=== PATIENT | female | born 1940 | race Caucasian/White ===

== ENCOUNTER 2020-11-17 11:02 | Observation (INO) | payer MEDICARE, BC ==
[2020-11-17] MEDS ORDERED: SODIUM CHLORIDE 0.9% 500 ML 500 ML IV STA (11:09)
--- NOTE | 2020-11-17 11:13 | ED ---
Weakness HPI - General Stated complaint: R sided weakness Time Seen by Provider: 11/17/20 11:02 Source: patient, EMS, RN notes reviewed Mode of arrival: EMS - History of Present Illness Initial comments: This is a 72-year-old female with a prior history of TIA in the past also hypertension who about one and one half hours prior to arrival started developing generalized mainly some weakness with some right-sided weakness. She does state the weakness has improved since then she was evaluated by EMS and in [place] stroke scale was found to be negative. She denies any fevers chills or sweats at this time but does state that she did have that over last couple days she also had a cough for 3 days which has resolved today. She also when she tries to walk feel somewhat shaky and dizzy. She does admit to not eating drinking quite as much as usual. She denies any other complaints or modifying f actors at this time. MD Complaint: generalized weakness, focal weakness, lack of energy - Related Data Home Medications Medication Instructions Recorded Confirmed Aspirin EC [Ecotrin Low Dose] 81 mg PO HS 11/17/20 11/17/20 Carvedilol [Coreg] 25 mg PO BID 11/17/20 11/17/20 Cetirizine HCl 10 mg PO DAILY 11/17/20 11/17/20 Clopidogrel Bisulfate [Plavix] 75 mg PO DAILY 11/17/20 11/17/20 Diclofenac Sodium [Voltaren Gel] 4 gram TOPICAL DAILY 11/17/20 11/17/20 Isosorbide Mononitrate ER [Imdur] 30 mg PO DAILY 11/17/20 11/17/20 Isosorbide Mononitrate ER [Imdur] 60 mg PO DAILY 11/17/20 11/17/20 Multivit-Min/FA/Lycopen/Lutein 1 tab PO DAILY 11/17/20 11/17/20 [Centrum Silver Tablet] Nitroglycerin Sl Tabs [Nitrostat] 0.4 mg SL Q5M PRN 11/17/20 11/17/20 Omeprazole 40 mg PO DAILY 11/17/20 11/17/20 Pravastatin Sodium [Pravachol] 20 mg PO HS 11/17/20 11/17/20 Sennosides/Docusate Sodium [Senna 2 tab PO HS 11/17/20 11/17/20 Plus 8.6-50 mg Tablet] Vitamin B Complex 1 cap PO DAILY 11/17/20 11/17/20 hydrALAZINE HCL [Apresoline] 75 mg PO BID 11/17/20 11/17/20 Allergies Allergy/AdvReac Type Severity Reaction Status Date / Time No Known Allergies Allergy Verified 11/17/20 13:04 Review of Systems ROS Statement: Those systems with pertinent positive or pertinent negative responses have been documented in the HPI. ROS Other: All systems not noted in ROS Statement are negative. General Exam - General Exam Comments Initial Comments: This is a well-developed asthenic appearing female who is awake alert oriented 3 General appearance: alert, in no apparent distress Head exam: Present: atraumatic, normocephalic, normal inspection Eye exam: Present: normal appearance, PERRL, EOMI. Absent: scleral icterus, conjunctival injection, periorbital swelling ENT exam: Present: mucous membranes dry Neck exam: Present: normal inspection, full ROM, other (No stridor JVD or bruits). Absent: tenderness, meningismus, lymphadenopathy Respiratory exam: Present: normal lung sounds bilaterally. Absent: respiratory distress, wheezes, rales, rhonchi, stridor Cardiovascular Exam: Present: regular rate, normal rhythm, normal heart sounds. Absent: systolic murmur, diastolic murmur, rubs, gallop, clicks GI/Abdominal exam: Present: soft, normal bowel sounds. Absent: distended, tenderness, guarding, rebound, rigid, bruit, pulsatile mass Extremities exam: Present: normal inspection, full ROM, normal capillary refill. Absent: tenderness, pedal edema, joint swelling, calf tenderness Back exam: Present: normal inspection Neurological exam: Present: alert, oriented X3, CN II-XII intact Psychiatric exam: Present: normal affect, normal mood Skin exam: Present: warm, dry, intact, normal color. Absent: rash Course Vital Signs 11/17/20 11/17/20 11:05 12:36 Temperature 98.0 F Pulse Rate 68 66 Respiratory 18 18 Rate Blood Pressure 128/66 131/79 O2 Sat by Pulse 98 98 Oximetry - Reevaluation(s) Reevaluation #1: 11/17/20 13:30 (No further symptoms at this time. EKG Findings - EKG Results: EKG: interpreted by ERMD, WNL, sinus rhythm, normal axis, normal QRS, normal ST/T, no acute changes (Normal sinus rhythm a 65. Interval 162 QRS 84 QT since QTC 444/461) Medical Decision Making - Medical Decision Making I did discuss findings with the patient initially also with Dr. Sands patient be admitted with neurology consultation the presentation consistent with a TIA - Lab Data Result diagrams: 11/17/20 11:41 11/17/20 11:41 Lab Results 11/17/20 11/17/20 11/17/20 Range/Units 11:41 11:41 11:41 WBC 7.1 (3.8-10.6) k/uL RBC 4.38 (3.80-5.40) m/uL Hgb 12.8 (11.4-16.0) gm/dL Hct 38.4 (34.0-46.0) % MCV 87.6 (80.0-100.0) fL MCH 29.2 (25.0-35.0) pg MCHC 33.4 (31.0-37.0) g/dL RDW 13.1 (11.5-15.5) % Plt Count 198 (150-450) k/uL MPV 7.4 Neutrophils % 71 % Lymphocytes % 17 % Monocytes % 9 % Eosinophils % 1 % Basophils % 1 % Neutrophils # 5.1 (1.3-7.7) k/uL Lymphocytes # 1.2 (1.0-4.8) k/uL Monocytes # 0.7 (0-1.0) k/uL Eosinophils # 0.1 (0-0.7) k/uL Basophils # 0.1 (0-0.2) k/uL PT 9.9 (9.0-12.0) sec INR 0.9 (<1.2) APTT 19.5 L (22.0-30.0) sec Sodium 134 L (137-145) mmol/L Potassium 4.2 (3.5-5.1) mmol/L Chloride 100 (98-107) mmol/L Carbon Dioxide 23 (22-30) mmol/L Anion Gap 11 mmol/L BUN 14 (7-17) mg/dL Creatinine 0.51 L (0.52-1.04) mg/dL Est GFR (CKD-EPI)AfAm >90 (>60 ml/min/1.73 sqM) Est GFR (CKD-EPI)NonAf >90 (>60 ml/min/1.73 sqM) Glucose 103 H (74-99) mg/dL Calcium 9.0 (8.4-10.2) mg/dL Total Bilirubin 0.8 (0.2-1.3) mg/dL AST 97 H (14-36) U/L ALT 78 H (4-34) U/L Alkaline Phosphatase 127 H (38-126) U/L Creatine Kinase 73 (30-135) U/L Troponin I (0.000-0.034) ng/mL Total Protein 7.2 (6.3-8.2) g/dL Albumin 4.3 (3.5-5.0) g/dL Urine Color Urine Appearance (Clear) Urine pH (5.0-8.0) Ur Specific [place] (1.001-1.035) Urine Protein (Negative) Urine Glucose (UA) (Negative) Urine Ketones (Negative) Urine Blood (Negative) Urine Nitrite (Negative) Urine Bilirubin (Negative) Urine Urobilinogen (<2.0) mg/dL Ur Leukocyte Esterase (Negative) Urine WBC (0-5) /hpf Ur Squamous Epith Cells (0-4) /hpf Urine Mucus (None) /hpf 11/17/20 11/17/20 Range/Units 11:41 11:42 WBC (3.8-10.6) k/uL RBC (3.80-5.40) m/uL Hgb (11.4-16.0) gm/dL Hct (34.0-46.0) % MCV (80.0-100.0) fL MCH (25.0-35.0) pg MCHC (31.0-37.0) g/dL RDW (11.5-15.5) % Plt Count (150-450) k/uL MPV Neutrophils % % Lymphocytes % % Monocytes % % Eosinophils % % Basophils % % Neutrophils # (1.3-7.7) k/uL Lymphocytes # (1.0-4.8) k/uL Monocytes # (0-1.0) k/uL Eosinophils # (0-0.7) k/uL Basophils # (0-0.2) k/uL PT (9.0-12.0) sec INR (<1.2) APTT (22.0-30.0) sec Sodium (137-145) mmol/L Potassium (3.5-5.1) mmol/L Chloride (98-107) mmol/L Carbon Dioxide (22-30) mmol/L Anion Gap mmol/L BUN (7-17) mg/dL Creatinine (0.52-1.04) mg/dL Est GFR (CKD-EPI)AfAm (>60 ml/min/1.73 sqM) Est GFR (CKD-EPI)NonAf (>60 ml/min/1.73 sqM) Glucose (74-99) mg/dL Calcium (8.4-10.2) mg/dL Total Bilirubin (0.2-1.3) mg/dL AST (14-36) U/L ALT (4-34) U/L Alkaline Phosphatase (38-126) U/L Creatine Kinase (30-135) U/L Troponin I <0.012 (0.000-0.034) ng/mL Total Protein (6.3-8.2) g/dL Albumin (3.5-5.0) g/dL Urine Color Dark Yellow Urine Appearance Clear (Clear) Urine pH 6.5 (5.0-8.0) Ur Specific [place] 1.021 (1.001-1.035) Urine Protein 1+ H (Negative) Urine Glucose (UA) Negative (Negative) Urine Ketones Negative (Negative) Urine Blood Negative (Negative) Urine Nitrite Negative (Negative) Urine Bilirubin Negative (Negative) Urine Urobilinogen <2.0 (<2.0) mg/dL Ur Leukocyte Esterase Trace H (Negative) Urine WBC 2 (0-5) /hpf Ur Squamous Epith Cells <1 (0-4) /hpf Urine Mucus Occasional H (None) /hpf - Radiology Data Radiology results: report reviewed (I did review the imaging and reports no evidence of acute obstructions.), image reviewed Disposition Clinical Impression: TIA (transient ischemic attack), Dehydration Disposition: ADMITTED IP TO THIS HOSP Condition: Fair Referrals: Hussain Metzger DO [Primary Care Provider] - 1-2 days
[2020-11-17 11:53] LABS: Basophils # (A) 0.1 k/uL (0-0.2); Basophils % (A) 1 %; Eosinophils # (A) 0.1 k/uL (0-0.7); Eosinophils % (A) 1 %; HCT 38.4 % (34.0-46.0); HGB 12.8 gm/dL (11.4-16.0); Lymphocytes # (A) 1.2 k/uL (1.0-4.8); Lymphocytes % (A) 17 %; MCH 29.2 pg (25.0-35.0); MCHC 33.4 g/dL (31.0-37.0); MCV 87.6 fL (80.0-100.0); Mean Platelet Volume 7.4; Monocytes # (A) 0.7 k/uL (0-1.0); Monocytes % (A) 9 %; Neutrophils # (A) 5.1 k/uL (1.3-7.7); Neutrophils % (A) 71 %; Platelet Count 198 k/uL (150-450); RBC 4.38 m/uL (3.80-5.40); RDW 13.1 % (11.5-15.5); WBC 7.1 k/uL (3.8-10.6)
[2020-11-17] MEDS: SODIUM CHLORIDE 0.9% 1,000 ML IV STA ×2 (12:04→17:00)
[2020-11-17 12:08] LABS: ALT 78 U/L (4-34); AST 97 U/L (14-36); African American GFR (CKD) >90 (>60 ml/min/1.73 sqM); Albumin 4.3 g/dL (3.5-5.0); Alkaline Phosphatase 127 U/L (38-126); Anion Gap 11 mmol/L; Blood Urea Nitrogen 14 mg/dL (7-17); Carbon Dioxide 23 mmol/L (22-30); Chloride 100 mmol/L (98-107); Creatine Kinase 73 U/L (30-135); Glucose 103 mg/dL (74-99); Non-African American GFR(CKD) >90 (>60 ml/min/1.73 sqM); Potassium 4.2 mmol/L (3.5-5.1); Sodium 134 mmol/L (137-145); Total Bilirubin 0.8 mg/dL (0.2-1.3); Total Protein 7.2 g/dL (6.3-8.2)
[2020-11-17 12:17] LABS: Appearance,Urine Clear (Clear); Bilirubin,Urine Negative (Negative); Blood,Urine Negative (Negative); Color,Urine Dark Yellow; Glucose,Urine (UA) Negative (Negative); Ketones,Urine Negative (Negative); Leukocyte Esterase,Urine Trace (Negative); Mucus,Urine Occasional /hpf; Nitrite,Urine Negative (Negative); PH, Urine 6.5 (5.0-8.0); Protein,Urine 1+ (Negative); Specific Gravity,Urine 1.021 (1.001-1.035); Squamous Epithelial Cell,Urine <1 /hpf (0-4); Urobilinogen,Urine <2.0 mg/dL (<2.0); WBC,Urine 2 /hpf (0-5)
[2020-11-17 12:19] LABS: INR 0.9 (<1.2); Prothrombin Time 9.9 sec (9.0-12.0)
--- NOTE | 2020-11-17 12:19 | XR ---
EXAMINATION TYPE: XR chest 2V DATE OF EXAM: 11/17/2020 COMPARISON: NONE HISTORY: Dizziness and weakness. TECHNIQUE: Frontal and lateral views of the chest are obtained. FINDINGS: There is mild chronic parenchymal change without suspicious focal air space opacity, pleur al effusion, or pneumothorax seen. The cardiac silhouette size is upper limits of normal with athero sclerotic thoracic aorta and coronary stent in the left circumflex distribution. The osseous struct ures are intact. Cholecystectomy clips noted on lateral view. IMPRESSION: Chronic changes without acute pulmonary process.
[2020-11-17 12:25] LABS: Partial Thromboplastin Time 19.5 sec (22.0-30.0)
--- NOTE | 2020-11-17 13:05 | CT ---
EXAMINATION TYPE: CT brain wo con for TPA DATE OF EXAM: 11/17/2020 HISTORY: Neuro deficit, acute, stroke suspected CT DLP: 1022 mGycm. Automated Exposure Control for Dose Reduction was Utilized. TECHNIQUE: CT scan of the head is performed without contrast. COMPARISON: None. FINDINGS: There is no acute intracranial hemorrhage or midline shift identified. There is mild diff use ventricular and sulcal prominence consistent with diffuse age-related cerebral atrophy. There is mild to moderate low-attenuation in the periventricular white matter consistent with chronic small v essel ischemic change. The globes are intact and the visualized sinuses are clear. IMPRESSION: No acute intracranial hemorrhage or midline shift. There is mild diffuse age-related ce rebral atrophy and mild to moderate chronic small vessel ischemic change noted.
--- NOTE | 2020-11-17 13:13 | CT ---
EXAMINATION TYPE: CT angio head neck DATE OF EXAM: 11/17/2020 HISTORY: Neuro deficit, acute, stroke suspected COMPARISON: None. CT DLP: 301.8 mGycm. Automated Exposure Control for Dose Reduction was Utilized. TECHNIQUE: CTA scan of the head and neck are performed with IV Contrast, patient injected with 65 mL of Isovue 370, axial images are obtained, coronal and sagittal reformatted images are reviewed. Thre e-D reconstructed images are created on an independent workstation and reviewed. FINDINGS: Carotid/Vascular Structures: Arch origin vessels not included in field of view. Right common carotid artery shows normal origin from right brachiocephalic artery. Tortuous course to the visualized porti on of the proximal to mid common carotid arteries bilaterally. No significant plaque or stenosis in c ommon carotid arteries bilaterally. Proximal left common carotid artery is not included to assess. Th ere is mild to moderate mixed plaque at bilateral carotid bulbs extending into proximal internal mata tid arteries without significant stenosis identified bilaterally. There is no significant plaque or s tenosis in the external carotid arteries. Patent codominant vertebral arteries to the basilar junction. No significant focal stenosis or aneury sm. Patent right posterior communicating artery. Hypoplastic left posterior communicating artery. No significant focal stenosis or aneurysm. Hypoplastic anterior communicating artery. No significant foc al stenosis is seen. Mild calcified plaque distal internal carotid arteries bilaterally. There is slight ectasia or tiny c ylindrical aneurysm of the right A2 segment measuring 3.5 mm thin slice 135 and slightly more promine nt cylindrical aneurysm left A2 segment measuring 4.4 mm thin slice 138. Other: Moderate to severe disc space narrowing and endplate sclerosis C5-C6 level Heterogeneous multinodular thyroid goiter felt present. Correlate clinically. Consider ultrasound fol low-up based on clinical correlation. Scleral calcification bilateral globes medially. IMPRESSION: 1. Suboptimal study without significant stenosis seen in common or internal carotid arteries bilatera lly. 2. 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 No significant stenosis at level of ramona of [place].
[2020-11-17] MEDS ORDERED: NITROGLYCERIN SL TABS 0.4 MG TAB SUBLINGUAL PRN (13:33)
--- NOTE | 2020-11-17 16:14 | P.CNNES ---
History of Present Illness Consult date: 11/17/20 Requesting physician: Alan Davis Reason for Consult: right sided weakness History of Present Illness: This is a 80-year-old woman with history of hypertension (since 1995), CAD s/p 4 2011, lumbar spondylosis s/p lumbar fusion (02/2020), hypercholestremia that presented to the emergency department on 11/17/2020 for slurring of her speech. According to patient that she stated that for the last 3 days she hasn't been feeling well and she's been having generalized weakness fatigue and that today in the morning was noted by her daughter that the patient was slurring her speech. As well as a the patient stated that the her daughter notified her mother that she wasn't making sense when she was talking. Per the patient the entire episode lasted for 30 minutes. It is reported by the ED team that the patient had right-sided weakness but she denied any right-sided weakness on today's presentation. She said that she does have episodes that she has right-sided weakness in the past but not on this occasion. She denies of any focal weakness, numbness, visual disturbance. She denies of any fever. She said that she had a cough sometime earlier in the week but that resolved. Currently she is back to her baseline. She said that she had a questionable transient ischemic attack about 3 years ago where she felt dizzy and lightheaded when she stood up and was feel generalized weak at that time and then she passed out and it was questionable whether it was a transient ischemic attack or not. She denies any history of seizures or family history of seizures. Patient home medication is Plavix 75 mg daily, aspirin 81 mg, pravastatin 20 mg daily, other blood pressure medications such as hydralazine and the patient is on carvedilol and isosorbide for a heart. Patient is on vitamin B complex and denies missing her antiplatelet or cholesterol medication. Workup in the hospital consisted of: Blood pressure of 128/66, heart rate of 68, respiratory of 18, temperature of 98.0 Fahrenheit and pulse ox of 98% at room air. CT of the head is reported as no acute intracranial hemorrhage or midline shift. There is mild diffuse age-related cerebral atrophy and mild to moderate chronic small vessel ischemic changes noted. CT head and neck was reported as suboptimal study without significant stenosis seen in common or internal carotid arteries bilaterally. 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 No significant stenosis at the level mechoopda of [place]. 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 The intervention neurologist (Dr. Deleon) was contacted regarding the patient aneurysm and he stated nothing to be done at this time and to follow-up as an outpatient. Per ED team Dr. Deleon stated his team will attempt to contact her for outpatient follow-up. EKG is reported as normal sinus rhythm. Normal EKG. AST of 97, ALT of 78. Review of Systems Review of system: The 12 point system was reviewed and apparent positive and negative per HPI. Past Medical History Past Medical History: CVA/TIA, Hyperlipidemia, Hypertension Additional Past Medical History / Comment(s): angina, TIA history History of Any Multi-Drug Resistant Organisms: None Reported Past Surgical History: Section, Cholecystectomy, Ear Surgery, Heart Cat heterization With Stent, Hysterectomy, Joint Replacement Additional Past Surgical History / Comment(s): low back fusion, lithotripsy, 4 cardiac stents, right partial knee, Past Psychological History: Depression Smoking Status: Former smoker Past Alcohol Use History: None Reported Past Drug Use History: None Reported - Past Family History Father Family Medical History: Hyperlipidemia, Hypertension, Myocardial Infarction (SC), Osteoarthritis (OA) Additional Family Medical History / Comment(s): Father had heart problems and of a SC at the age of 82 yrs. Mother Family Medical History: Diabetes Mellitus, Myocardial Infarction (SC) Additional Family Medical History / Comment(s): Mother of a SC at the age of 78yrs. Medications and Allergies Home Medications Medication Instructions Recorded Confirmed Type Aspirin EC [Ecotrin Low Dose] 81 mg PO HS 11/17/20 11/17/20 History Carvedilol [Coreg] 25 mg PO BID 11/17/20 11/17/20 History Cetirizine HCl 10 mg PO DAILY 11/17/20 11/17/20 History Clopidogrel Bisulfate [Plavix] 75 mg PO DAILY 11/17/20 11/17/20 History Diclofenac Sodium [Voltaren Gel] 4 gram TOPICAL DAILY 11/17/20 11/17/20 History Isosorbide Mononitrate ER [Imdur] 30 mg PO DAILY 11/17/20 11/17/20 History Isosorbide Mononitrate ER [Imdur] 60 mg PO DAILY 11/17/20 11/17/20 History Multivit-Min/FA/Lycopen/Lutein 1 tab PO DAILY 11/17/20 11/17/20 History [Centrum Silver Tablet] Nitroglycerin Sl Tabs [Nitrostat] 0.4 mg SL Q5M PRN 11/17/20 11/17/20 History Omeprazole 40 mg PO DAILY 11/17/20 11/17/20 History Pravastatin Sodium [Pravachol] 20 mg PO HS 11/17/20 11/17/20 History Sennosides/Docusate Sodium [Senna 2 tab PO HS 11/17/20 11/17/20 History Plus 8.6-50 mg Tablet] Vitamin B Complex 1 cap PO DAILY 11/17/20 11/17/20 History hydrALAZINE HCL [Apresoline] 75 mg PO BID 11/17/20 11/17/20 History Allergies Allergy/AdvReac Type Severity Reaction Status Date / Time No Known Allergies Allergy Verified 11/17/20 13:04 Physical Examination - Vital Signs Vital Signs: Vital Signs Temp Pulse Resp BP Pulse Ox 11/17/20 12:36 66 18 131/79 98 11/17/20 11:05 98.0 F 68 18 128/66 98 Intake and Output 11/16/20 11/17/20 11/17/20 22:59 06:59 14:59 Other: Weight 55.792 kg GENERAL: The patient is lying in bed and is not in acute distress. CHEST: The heart rate is regular rate rhythm. No murmurs to auscultation. No carotid bruit bilaterally----. LUNG: Clear to auscultation bilaterally no wheezing noted throughout. Not labored breathing. ABDOMEN/GI: Bowel sounds present in all 4 quadrants. No tenderness to palpation throughout. NEUROLOGICAL: Higher mental function: The patient is awake, alert, oriented to self, place and time. Patient is following commands. No aphasia and no neglect. Cranial nerves: The pupils are round, equal and reactive to light and accommodation. Visual murray are full to confrontation throughout. Extraocular movement is intact no nystagmus is noted. Facial sensation is normal to touch throughout. The facial strength is normal throughout. Hearing is normal bilaterally to hand rub. Tongue is midline and moved [id number] without any difficulty. No dysarthria is noted. Shoulder shrug is normal bilaterally. Motor: The strength is 5 over 5 throughout. Normal tone and bulk. Cerebellum: Normal finger to nose heel to ferrari bilaterally. Sensation: Sensation is normal to touch throughout. Reflexes (right/left): Biceps ---; triceps---; brachioradialis; patellar----; ankles-----. Plantars are downgoing bilaterally. Results Serum glucose is 103. The sodium is 134 which is mildly low. Urinalysis is negative for urinary tract infection Regulation study: PT of 9.9, INR 0.9 and PTT of 19.5 - Laboratory Findings CBC and BMP: 11/17/20 11:41 11/17/20 11:41 Abnormal Lab Findings: Abnormal Labs 11/17/20 11/17/20 11/17/20 11:41 11:41 11:42 APTT 19.5 L Sodium 134 L Creatinine 0.51 L Glucose 103 H AST 97 H ALT 78 H Alkaline Phosphatase 127 H Urine Protein 1+ H Ur Leukocyte Esterase Trace H Urine Mucus Occasional H Assessment and Plan Assessment: This is a 80-year-old woman that presented to the emergency department on 11/17/2020 with transient episode of slurring her speech. She has been feeling generalized weakness/fatigue for the past 3 days and slight cough earlier in wee k that resolved. Transient episode of dysarthria is possibly transient ischemic attack. 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 History of hypertension History of lumbar spondylosis status post fusion in February 2020 History of coronary artery disease status post 4 stents 2011 Hypercholesterolemia Plan: CT of the head is reported as no acute intracranial hemorrhage or midline shift. There is mild diffuse age-related cerebral atrophy and mild to moderate chronic small vessel ischemic changes noted. CT head and neck was reported as suboptimal study without significant stenosis seen in common or internal carotid arteries bilaterally. 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 No significant stenosis at the level mechoopda of [place]. 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 The intervention neurologist (Dr. Deleon) was contacted regarding the patient aneurysm and he stated nothing to be done at this time and to follow-up as an outpatient. Per ED team Dr. Deleon stated his team will attempt to contact her for outpatient follow-up. Patient home Aspirin 81 mg and Plavix 75mg was restarted by the ED team. I recommend the patient to be on a Birlinta and stop Plavix 75mg daily but because of history of cardiac stent will get approval from cardiology team first. She was restarted on Pravastatin 20mg daily. I ordered MRI of the brain and 2-D echo I ordered TSH, vitamin B6 level especially since the patient is on the multiple vitamins and the excess of vitamin B6 that can cause neuropathy. Lipid panels ordered and is pending PT, OT and [facility] [employer]IST are consulted The plan is discussed with the patient. We'll defer the rest of the medical management to the primary team. If all work-up are complete by tomorrow and has no further events then patient would be clear from a neurology perspective and to follow-up with a neurologist as outpatient. Please allow permissive hypertension up in the first 24 hours. Only controlled blood pressure systolics >200 and diastolic is >100. The plan is discussed with the patient. Thank you for the consultation. Juan Reyes M.D. Neuro-hospitalist Time with Patient: Greater than 30
[2020-11-17] MEDS: SODIUM CHLORIDE 0.9% 1,000 ML IV SCH ×2 (17:22→21:09)
[2020-11-17] MEDS: carvediloL 12.5 MG TAB PO SCH (17:45)
[2020-11-17] MEDS ORDERED: ACETAMINOPHEN TAB 500 MG TAB PO PRN (18:04)
[2020-11-17] MEDS ORDERED: ALPRAZolam 0.25 MG TAB PO PRN (18:04)
[2020-11-17 18:47] LABS: C Reactive Protein 15.3 mg/L (<10.0)
[2020-11-17] MEDS: ENOXAPARIN 40 MG/0.4 ML SYRINGE SQ SCH (18:48)
[2020-11-17] MEDS: CHOLECALCIFEROL 25 MCG (1000 IU) TABLET PO SCH (18:48)
[2020-11-17] MEDS: ASCORBIC ACID 500 MG TAB PO SCH (18:48)
--- NOTE | 2020-11-17 20:34 | HP ---
HISTORY AND PHYSICAL DATE OF SERVICE: 11/17/2020. CHIEF COMPLAINTS: Weakness headache and possible TIA. HISTORY OF PRESENT ILLNESS: This 80-year-old woman with a past medical history of possible CVA, TIA, hypertension, hyperlipidemia, history of angina, history of CAD/stent being followed by Dr. Metzger in the outpatient setting. The patient not feeling well for the past week. Today, according to the family, the patient apparently had weakness on the right side and the patient was also less responsive for some time and the patient was taken to [facility] and was admitted for evaluation and treatment. 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 Neurology has recommended close followup. The COVID-19 rapid test came back positive. The patient being closely monitored at this time. Liver function tests also elevated. There is no history of fever, rigors. No history of headache, loss of consciousness, seizures. PAST MEDICAL HISTORY: CVA, TIA, hypertension, hyperlipidemia, history of CAD/stent, Caesarean section, cholecystectomy. MEDICATIONS: Home medications are alprazolam. Vitamin B complex. Senna. Pravachol. Omeprazole. Nitrostat. Imdur. Voltaren. Plavix. Coreg. Ecotrin. ALLERGIES: None. FAMILY HISTORY: Family history of hypertension, hyperlipidemia, history of myocardial infarction, history of degenerative joint disease. SOCIAL HISTORY: No history of smoking. No history of alcohol. REVIEW OF SYSTEMS: ENT: Diminished vision. Diminished hearing. CARDIOVASCULAR is no angina. No palpitations. RESPIRATORY system: No cough. No hemoptysis. GI no nausea or vomiting. : No dysuria. NERVOUS SYSTEM: No numbness, weakness. ALLERGY/IMMUNOLOGY: No asthma or hayfever. MUSCULOSKELETAL as mentioned earlier. HEMATOLOGY/ONCOLOGY: No history of anemia. ENDOCRINE: No history of diabetes or hypothyroidism. CONSTITUTIONAL: As mentioned earlier. DERMATOLOGY: Negative. RHEUMATOLOGY negative. PSYCHIATRY as mentioned earlier. PHYSICAL EXAMINATION: Alert and oriented x3. Pulse is 64, blood pressure 184/91, respirations 16, temperature 97.8. Pulse ox 100 percent on room air. HEENT: Conjunctivae normal. NECK: No JVD. CARDIOVASCULAR: S1, S2 muffled. RESPIRATORY SYSTEM: Breath sounds diminished at the bases. Scattered rhonchi. No crackles. ABDOMEN: Soft, nontender. LEGS are no edema. No swelling. NERVOUS SYSTEM: Higher functions as mentioned earlier. Cranial nerves II-XII grossly intact. No signs of cerebellar dysfunction. Eye movements are full in all directions. No weakness. SKIN: No ulcer, rash or bleeding. JOINTS: No active deforming arthropathy. LYMPHATICS: No lymph nodes palpable in the neck, axillae or groin. LABS: CBC within normal limits. APTT 19.4. Sodium 134. AST is 97, ALT is 78, alkaline phosphatase 127. ASSESSMENT: 1. Right-sided weakness with possible left-sided transient ischemic attack. 2. Acute COVID-19 infection. 3. Hyponatremia. 4. Elevated AST ALT and alkaline phosphatase. 5. History of transient ischemic attack. 6. Hypertension. 7. 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 8. Hyperlipidemia. 9. History of angina. 10.History of cholecystectomy. 11.History of coronary artery disease/stent. 12.History of degenerative joint disease. 13.History of lithotripsy. 14.History of depression. 15.Remote history of nicotine dependence. 16.Obesity with body mass index of 58.2. RECOMMENDATION: This 80-year-old woman who presented with multiple complex medical issues, we will monitor the patient closely. I would recommend continue the current medications. Antiplatelet agents. The patient is also Covid 19 positive. The chest x-ray showed no evidence of any pneumonia at this time. However, I would recommend inflammatory markers, Covid 19, including D-dimer and CRP, LDH and LFTs will be closely monitored serially. Avoid hepatotoxic medications. The prognosis guarded because of multiple complex medical issues. The changes in the CT scan noted. We will recommend close followup with Neurology as in outpatient setting as well. Overall prognosis guarded because of multiple complex medical issues. Further recommendations to follow. MMODL / IJN: [id number] /
[2020-11-17] MEDS: PRAVASTATIN SODIUM 20 MG TAB PO SCH (21:08)
[2020-11-17] MEDS: SENNOSIDES-DOCUSATE SODIUM 1 EACH TAB PO SCH (21:08)
[2020-11-17] MEDS: ASPIRIN 81 MG PO SCH (21:09)
[2020-11-17] MEDS: hydrALAZINE HCL 25 MG TAB PO SCH (21:09)
[2020-11-17] MEDS: FAMOTIDINE 20 MG TAB PO SCH (21:09)
[2020-11-18] MEDS: carvediloL 12.5 MG TAB PO SCH ×2 (07:12→17:24)
[2020-11-18] MEDS: PANTOPRAZOLE 40 MG TABLET PO SCH (07:12)
[2020-11-18 07:30] LABS: African American GFR (CKD) >90 (>60 ml/min/1.73 sqM); Anion Gap 4 mmol/L; Blood Urea Nitrogen 8 mg/dL (7-17); Calcium 8.6 mg/dL (8.4-10.2); Carbon Dioxide 27 mmol/L (22-30); Chloride 106 mmol/L (98-107); Cholesterol 123 mg/dL (<200); Glucose 87 mg/dL (74-99); HDL Cholesterol 42 mg/dL (40-60); LDL Cholesterol,Calculated 52 mg/dL (0-99); Non-African American GFR(CKD) >90 (>60 ml/min/1.73 sqM); Potassium 3.8 mmol/L (3.5-5.1); Sodium 137 mmol/L (137-145); Triglycerides 146 mg/dL (<150)
[2020-11-18 07:40] LABS: Basophils % (A) 1 %; Eosinophils % (A) 1 %; HCT 34.9 % (34.0-46.0); HGB 11.5 gm/dL (11.4-16.0); Lymphocytes # (A) 1.3 k/uL (1.0-4.8); Lymphocytes % (A) 35 %; MCHC 32.9 g/dL (31.0-37.0); Mean Platelet Volume 7.6; Monocytes # (A) 0.4 k/uL (0-1.0); Monocytes % (A) 11 %; Neutrophils # (A) 1.9 k/uL (1.3-7.7); Neutrophils % (A) 49 %; Platelet Count 192 k/uL (150-450); RBC 3.97 m/uL (3.80-5.40); RDW 13.2 % (11.5-15.5); WBC 3.8 k/uL (3.8-10.6)
[2020-11-18] MEDS ORDERED: CLOPIDOGREL 75 MG TAB PO SCH (09:00)
[2020-11-18] MEDS ORDERED: NON FORMULARY DRUG (Vitamin B Complex [Vitamin B Complex] 1 EACH Capsule) PO SCH (09:00)
[2020-11-18] MEDS: hydrALAZINE HCL 25 MG TAB PO SCH ×2 (09:56→20:19)
[2020-11-18] MEDS: CHOLECALCIFEROL 25 MCG (1000 IU) TABLET PO SCH (09:57)
[2020-11-18] MEDS: FAMOTIDINE 20 MG TAB PO SCH ×2 (09:57→20:19)
[2020-11-18] MEDS: ASCORBIC ACID 500 MG TAB PO SCH (09:57)
[2020-11-18] MEDS: MULTIVITAMINS, THERA 1 EACH TAB PO SCH (09:57)
[2020-11-18] MEDS: ISOSORBIDE MONONITRATE ER 30 MG TAB.ER.24H PO SCH (09:57)
[2020-11-18] MEDS: ENOXAPARIN 40 MG/0.4 ML SYRINGE SQ SCH (09:57)
[2020-11-18] MEDS: LORATADINE 10 MG TAB PO SCH (09:57)
[2020-11-18] MEDS: ISOSORBIDE MONONITRATE ER 60 MG TAB.ER.24H PO SCH (09:57)
[2020-11-18] MEDS: DICLOFENAC SODIUM GEL 100 GM TUBE TOPICAL SCH ×2 (09:58→11:04)
--- NOTE | 2020-11-18 11:47 | MR ---
MR brain without contrast HISTORY: Stroke, slurred speech Multiplanar multisequence imaging obtained through the brain Correlation to CT brain 11/17/2020 There is no restricted diffusion. There is no hemorrhage or hydrocephalus. Cerebellopontine angles, p ericallosal, pituitary, cervical medullary junction are normal. There are normal vascular flow voids. Some mild inflammatory change present within the ethmoid air cells, maxillary sinuses. Periventricul ar, pericallosal, subcortical scattered and confluent hyperintensities present on inversion recovery T2-weighted sequences, approximately 50 lesions are present, some increased signal also present in th e amalia. Orbits show symmetric appearance. There is cortical atrophy. IMPRESSION: Age-related changes of atrophy and chronic small vessel ischemia.
--- NOTE | 2020-11-18 15:18 | P.PN ---
Subjective Progress Note Date: 11/18/20 The patient was seen at bedside and she stated she is back to baseline and she has not had any further neurological deficit since she's been in the hospital. MR the brain is reported as age-related changes of atrophy and chronic small vessel ischemia. Siddiqui virus PCR is detected. Objective - Vital Signs Vital signs: Vital Signs Temp 97.7 F 11/18/20 08:00 Pulse 72 11/18/20 08:00 Resp 18 11/18/20 08:00 BP 140/74 11/18/20 08:00 Pulse Ox 98 11/18/20 08:00 Intake & Output 11/17/20 11/18/20 11/18/20 18:59 06:59 18:59 Intake Total 540 480 Output Total 300 Balance 540 180 Weight 130.8 kg 60.5 kg Intake: Oral 540 480 Output: Urine 300 Other: Voiding Method Toilet Toilet # Voids 1 - Exam GENERAL: The patient is lying in bed and is not in acute distress. NEUROLOGICAL: Higher mental function: The patient is awake, alert, oriented to self, place and time. Patient is following commands. No aphasia and no neglect. Cranial nerves: The pupils are round, equal and reactive to light and accommodation. Visual murray are full to confrontation throughout. Extraocular movement is intact no nystagmus is noted. Facial sensation is normal to touch throughout. The facial strength is normal throughout. Hearing is normal bilaterally to hand rub. Tongue is midline and moved [id number] without any difficulty. No dysarthria is noted. Shoulder shrug is normal bilaterally. Motor: Gait is deferred. The strength is 5 over 5 throughout. Normal tone and bulk. Cerebellum: Normal finger to nose heel to ferrari bilaterally. Sensation: Sensation is normal to touch throughout. Reflexes (right/left): 2+ Plantars are downgoing bilaterally. - Labs CBC & Chem 7: 11/18/20 06:42 11/18/20 06:42 Labs: Abnormal Lab Results - Last 24 Hours (Table) 11/17/20 11/17/20 11/18/20 Range/Units 14:45 18:03 06:42 Creatinine 0.48 L (0.52-1.04) mg/dL C-Reactive Protein 15.3 H (<10.0) mg/L Coronavirus (PCR) Detected A (Not Detectd) Assessment and Plan Assessment: This is a 80-year-old woman that presented to the emergency department on 11/17/2020 with transient episode of slurring her speech. She has been feeling generalized weakness/fatigue for the past 3 days and slight cough earlier in week that resolved. 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 Pneumonia from underlying COVID 19 History of hypertension History of lumbar spondylosis status post fusion in February 2020 History of coronary artery disease status post 4 stents 2012 Hypercholesterolemia Plan: CT of the head is reported as no acute intracranial hemorrhage or midline shift. There is mild diffuse age-related cerebral atrophy and mild to moderate chronic small vessel ischemic changes noted. CT head and neck was reported as suboptimal study without significant stenosis seen in common or internal carotid arteries bilaterally. 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 No significant stenosis at the level [place]. 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 The intervention neurologist (Dr. Deleon) was contacted regarding the patient aneurysm and he stated nothing to be done at this time and to follow-up as an outpatient. Per ED team Dr. Deleon stated his team will attempt to contact her for outpatient follow-up. Patient home Aspirin 81 mg and Plavix 75mg was restarted by the ED team. I recommend the patient to be on a Birlinta and stop Plavix 75mg daily but because of history of cardiac stent will get approval from cardiology team first which cardiology cleared. Therefore I sopped Plavinx 75mg daily and started the patient on Brilinta 90mg 1 tab bid and to continue on ASA 81mg daily for secondary stroke prophylaxis. Continue Pravastatin 20mg daily. MR the brain is reported as age-related changes of atrophy and chronic small vessel ischemia. Pending 2-D echo TSH: 3.24 (normal), vitamin B6 level especially since the patient is on the multiple vitamins and the excess of vitamin B6 that can cause neuropathy. Lipid panels: Triglyceride is 146, cholesterol is 123, LDLs 52 and HDL is 42. Cholesterol the LDL goal is less than 52 and she is at goal. PT, OT and NETWORKER are consulted The plan is discussed with the patient. We'll defer the rest of the medical management to the primary team. Recommend normotensive blood pressure. If the 2D-echo is normal then she is clear for discharge from a neurological stand point. She needs to follow-up with Dr. Deleon team as outpatient (regarding her aneurysm). The plan is discussed with the patient and her nurse. Juan Reyes M.D. Neuro-hospitalist Time with Patient: Less than 30
--- NOTE | 2020-11-18 15:56 | P.CRDCN ---
<Bonita Patiño - Last Filed: 11/18/20 15:53> History of Present Illness Consult date: 11/18/20 History of present illness: HISTORY OF PRESENT ILLNESS: This is a 80-year-old female with a past medical history significant for hypertension, hyperlipidemia, TIA, and coronary artery disease with previous stents 4 in 2011. Patient follows with Dr. Martin in [facility]. We have been asked to see the patient in consultation for TIA. Patient originally presented to the hospital secondary to slurred speech and feeling foggy. Patient was found to be positive for Covid. She was evaluated by neurology and diagnosed with a TIA. She is currently taking aspirin and plavix at home. She denies chest pain or pressure. Denies shortness of breath. She states her speech has returned to normal. She denies any lightheadedness or dizziness. She denies any weakness of her extremities. Blood pressure 140/74. Heart rate in the 70s. Telemetry reveals sinus rhythm. No evidence of atrial fibrillation noted. DIAGNOSTICS: EKG reveals sinus mechanism with no signs of acute ischemia Chest xray chronic changes without acute pulmonary process Laboratory data: WBC 3.8. Hemoglobin 11.5. Platelet count 192. D-dimer 0.55. Sodium 137. Potassium 3.8. BUN 8. Creatinine 0.48. Current home cardiac medications include hydralazine 75 mg twice a day, pravastatin 20 mg daily, Imdur 90 mg daily, Plavix 75 mg daily, Coreg 25 mg twice a day, and aspirin 81 mg daily REVIEW OF SYSTEMS: At the time of my exam: CONSTITUTIONAL: Denies fever or chills. HEENT: Denies blurred vision, vision changes, or eye pain. Denies hemoptysis CARDIOVASCULAR: Denies chest pain, orthopnea, PND or palpitations RESPIRATORY: No shortness of breath. GASTROINTESTINAL: Denies abdominal pain. Denies nausea or vomiting. HEMATOLOGIC: Denies bleeding disorders. GENITOURINARY: Denies any blood in urine. SKIN: Denies pruitis. Denies rash. PHYSICAL EXAM: VITAL SIGNS: Reviewed. GENERAL: Well-developed in no acute distress. HEENT: Head is normocephalic. Pupils are equal, round. Sclerae anicteric. Mucous membranes of the mouth are moist. Neck supple. No JVD or thyromegaly LUNGS: Respirations even and unlabored. Lungs essentially clear to auscultation bilaterally. HEART: Regular rate and rhythm. S1 and S2 heard. ABDOMEN: Soft. Nondistended. Nontender. EXTREMITIES: Normal range of motion. No clubbing or cyanosis. Peripheral pulses intact. No lower extremity edema NEUROLOGIC: Awake and alert. Oriented x 3. ASSESSMENT: Covid 19 TIA Hypertension Hyperlipidemia Coronary artery disease with previous stenting 4 in 2011 PLAN: Obtain 2-D echo to assess cardiac structure and function Patient currently receiving aspirin and Plavix. Neurology wanting to switch patient to aspirin and Brilinta. There is no contra indication from a cardiac standpoint and patient may be switched from Plavix to Brilinta. Will defer this change to neurology. Resume additional cardiac medications Further recommendations per patient course Nurse practitioner note has been reviewed by physician. Signing provider agrees with the documented findings, assessment, and plan of care. Past Medical History Past Medical History: CVA/TIA, Hyperlipidemia, Hypertension Additional Past Medical History / Comment(s): angina, TIA history History of Any Multi-Drug Resistant Organisms: None Reported Past Surgical History: Section, Cholecystectomy, Ear Surgery, Heart Catheterization With Stent, Hysterectomy, Joint Replacement Additional Past Surgical History / Comment(s): low back fusion, lithotripsy, 4 cardiac stents, right partial knee, Past Anesthesia/Blood Transfusion Reactions: No Reported Reaction Additional Past Anesthesia/Blood Transfusion Reaction / Comment(s): Pt received blood with back surgery/no reaction. Date of Last Stent Placement:: 04/2012 Past Psychological History: Depression Smoking Status: Former smoker Past Alcohol Use History: None Reported Past Drug Use History: None Reported - Past Family History Father Family Medical History: Hyperlipidemia, Hypertension, Myocardial Infarction (ME), Osteoarthritis (OA) Additional Family Medical History / Comment(s): Father had heart problems and of a ME at the age of 82 yrs. Mother Family Medical History: Diabetes Mellitus, Myocardial Infarction (ME) Additional Family Medical History / Comment(s): Mother of a ME at the age of 78yrs. Medications and Allergies Home Medications Medication Instructions Recorded Confirmed Type Aspirin EC [Ecotrin Low Dose] 81 mg PO HS 11/17/20 11/17/20 History Carvedilol [Coreg] 25 mg PO BID 11/17/20 11/17/20 History Cetirizine HCl 10 mg PO DAILY 11/17/20 11/17/20 History Clopidogrel Bisulfate [Plavix] 75 mg PO DAILY 11/17/20 11/17/20 History Diclofenac Sodium [Voltaren Gel] 4 gram TOPICAL DAILY 11/17/20 11/17/20 History Isosorbide Mononitrate ER [Imdur] 30 mg PO DAILY 11/17/20 11/17/20 History Isosorbide Mononitrate ER [Imdur] 60 mg PO DAILY 11/17/20 11/17/20 History Multivit-Min/FA/Lycopen/Lutein 1 tab PO DAILY 11/17/20 11/17/20 History [Centrum Silver Tablet] Nitroglycerin Sl Tabs [Nitrostat] 0.4 mg SL Q5M PRN 11/17/20 11/17/20 History Omeprazole 40 mg PO DAILY 11/17/20 11/17/20 History Pravastatin Sodium [Pravachol] 20 mg PO HS 11/17/20 11/17/20 History Sennosides/Docusate Sodium [Senna 2 tab PO HS 11/17/20 11/17/20 History Plus 8.6-50 mg Tablet] Vitamin B Complex 1 cap PO DAILY 11/17/20 11/17/20 History hydrALAZINE HCL [Apresoline] 75 mg PO BID 11/17/20 11/17/20 History Allergies Allergy/AdvReac Type Severity Reaction Status Date / Time No Known Allergies Allergy Verified 11/17/20 13:04 Physical Exam Vitals: Vital Signs Temp Pulse Pulse Resp BP BP Pulse Ox 11/18/20 08:00 97.7 F 72 18 140/74 98 11/18/20 04:32 97.8 F 64 16 149/78 99 11/18/20 04:00 97.8 F 64 16 149/78 99 11/18/20 02:32 98.1 F 67 16 150/77 98 11/18/20 02:00 69 16 11/18/20 00:32 97.9 F 66 17 152/71 98 11/18/20 00:00 97.8 F 69 16 153/74 97 11/17/20 22:32 97.8 F 69 16 153/74 97 11/17/20 20:32 98.0 F 64 16 150/76 97 11/17/20 20:00 98.0 F 64 16 150/76 97 11/17/20 16:51 97.8 F 64 16 180/49 100 11/17/20 15:48 97.9 F 70 18 158/74 99 11/17/20 14:48 97.9 F 60 18 134/74 99 11/17/20 13:49 97.9 F 65 18 136/72 100 11/17/20 12:50 97.5 F L 60 18 118/64 99 11/17/20 12:36 66 18 131/79 98 Intake and Output 11/17/20 11/18/20 11/18/20 22:59 06:59 14:59 Intake Total 540 480 Output Total 300 Balance 540 180 Intake: Oral 540 480 Output: Urine 300 Other: Voiding Method Toilet Toilet Toilet # Voids 1 1 Weight 130.8 kg 60.5 kg Results 11/18/20 06:42 11/18/20 06:42 Cardiac Enzymes 11/17/20 11/17/20 11/17/20 Range/Units 11:41 14:45 17:44 Lactate Dehydrogenase (313-618) U/L Troponin I <0.012 <0.012 <0.012 (0.000-0.034) ng/mL 11/17/20 Range/Units 18:03 Lactate Dehydrogenase 445 (313-618) U/L Troponin I (0.000-0.034) ng/mL Coagulation 11/17/20 Range/Units 11:41 PT 9.9 (9.0-12.0) sec APTT 19.5 L (22.0-30.0) sec Lipids 11/18/20 Range/Units 06:42 Triglycerides 146 (<150) mg/dL Cholesterol 123 (<200) mg/dL HDL Cholesterol 42 (40-60) mg/dL CBC 11/18/20 Range/Units 06:42 WBC 3.8 (3.8-10.6) k/uL RBC 3.97 (3.80-5.40) m/uL Hgb 11.5 (11.4-16.0) gm/dL Hct 34.9 (34.0-46.0) % Plt Count 192 (150-450) k/uL Comprehensive Metabolic Panel 11/18/20 Range/Units 06:42 Sodium 137 (137-145) mmol/L Potassium 3.8 (3.5-5.1) mmol/L Chloride 106 (98-107) mmol/L Carbon Dioxide 27 (22-30) mmol/L BUN 8 (7-17) mg/dL Creatinine 0.48 L (0.52-1.04) mg/dL Glucose 87 (74-99) mg/dL Calcium 8.6 (8.4-10.2) mg/dL Current Medications Generic Name Dose Route Start Last Admin Trade Name Freq PRN Reason Stop Dose Admin Alprazolam 0.25 mg 11/17/20 18:04 Alprazolam 0.25 Mg Tab PO TID PRN Anxiety Ascorbic Acid 500 mg 11/17/20 18:15 11/18/20 09:57 Ascorbic Acid 500 Mg Tab PO 500 mg DAILY KIKI Administration Aspirin 81 mg 11/17/20 21:00 11/17/20 21:09 Aspirin 81 Mg PO 81 mg HS KIKI Administration Carvedilol 25 mg 11/17/20 17:30 11/18/20 07:12 Carvedilol 12.5 Mg Tab PO 25 mg BID-W/MEALS KIKI Administration Cholecalciferol 25 mcg 11/17/20 18:15 11/18/20 09:57 Cholecalciferol 25 Mcg (1000 Iu) Tablet PO 25 mcg DAILY KIKI Administration Clopidogrel Bisulfate 75 mg 11/18/20 09:00 11/18/20 09:57 Clopidogrel 75 Mg Tab PO 75 mg DAILY KIKI Administration Diclofenac Sodium 4 gm 11/18/20 09:00 11/18/20 11:04 Diclofenac Sodium Gel 100 Gm Tube TOPICAL Not Given DAILY [facility] Enoxaparin Sodium 40 mg 11/17/20 18:15 11/18/20 09:57 Enoxaparin 40 Mg/0.4 Ml Syringe SQ 40 mg DAILY KIKI Administration Famotidine 20 mg 11/17/20 21:00 11/18/20 09:57 Famotidine 20 Mg Tab PO 20 mg BID KIKI Administration Hydralazine HCl 75 mg 11/17/20 21:00 11/18/20 09:56 Hydralazine Hcl 25 Mg Tab PO 75 mg BID KIKI Administration Sodium Chloride 1,000 mls @ 100 mls/hr 11/17/20 13:45 11/17/20 21:09 Saline 0.9% IV 100 mls/hr .Q10H KIKI Administration Isosorbide Mononitrate 60 mg 11/18/20 09:00 11/18/20 09:57 Isosorbide Mononitrate Er 60 Mg Tab.Er.24h PO 60 mg DAILY KIKI Administration Isosorbide Mononitrate 30 mg 11/18/20 09:00 11/18/20 09:57 Isosorbide Mononitrate Er 30 Mg Tab.Er.24h PO 30 mg DAILY KIKI Administration Loratadine 10 mg 11/18/20 09:00 11/18/20 09:57 Loratadine 10 Mg Tab PO 10 mg DAILY KIKI Administration Multivitamins 1 each 11/18/20 09:00 11/18/20 09:57 Multivitamins, Thera 1 Each Tab PO 1 each DAILY KIKI Administration Nitroglycerin 0.4 mg 11/17/20 13:33 Nitroglycerin Sl Tabs 0.4 Mg Tab SUBLINGUAL Q5M PRN Chest Pain Pantoprazole Sodium 40 mg 11/18/20 07:30 11/18/20 07:12 Pantoprazole 40 Mg Tablet PO 40 mg AC-[id number] KIKI Administration Pravastatin Sodium 20 mg 11/17/20 21:00 11/17/20 21:08 Pravastatin Sodium 20 Mg Tab PO 20 mg HS KIKI Administration Senna/Docusate Sodium 2 each 11/17/20 21:00 11/17/20 21:08 Sennosides-Docusate Sodium 1 Each Tab PO 2 each HS KIKI Administration Intake and Output 11/17/20 11/18/20 11/18/20 22:59 06:59 14:59 Intake Total 540 480 Output Total 300 Balance 540 180 Intake: Oral 540 480 Output: Urine 300 Other: Voiding Method Toilet Toilet Toilet # Voids 1 1 Weight 130.8 kg 60.5 kg 11/18/20 06:42 11/18/20 06:42 <Jorge Bartlett - Last Filed: 11/18/20 19:14> Physical Exam Vitals: Vital Signs Temp Pulse Pulse Resp BP BP Pulse Ox 11/18/20 16:00 67 18 157/73 98 11/18/20 14:00 67 11/18/20 12:00 67 18 138/71 97 11/18/20 08:00 97.7 F 72 18 140/74 98 11/18/20 04:32 97.8 F 64 16 149/78 99 11/18/20 04:00 97.8 F 64 16 149/78 99 11/18/20 02:32 98.1 F 67 16 150/77 98 11/18/20 02:00 69 16 11/18/20 00:32 97.9 F 66 17 152/71 98 11/18/20 00:00 97.8 F 69 16 153/74 97 11/17/20 22:32 97.8 F 69 16 153/74 97 11/17/20 20:32 98.0 F 64 16 150/76 97 11/17/20 20:00 98.0 F 64 16 150/76 97 Intake and Output 11/18/20 11/18/20 11/18/20 06:59 14:59 22:59 Intake Total 720 240 Output Total 300 Balance 420 240 Intake: Oral 720 240 Output: Urine 300 Other: Voiding Method Toilet Toilet # Voids 1 Weight 60.5 kg Results 11/18/20 06:42 11/18/20 06:42 Lipids 11/18/20 Range/Units 06:42 Triglycerides 146 (<150) mg/dL Cholesterol 123 (<200) mg/dL HDL Cholesterol 42 (40-60) mg/dL CBC 11/18/20 Range/Units 06:42 WBC 3.8 (3.8-10.6) k/uL RBC 3.97 (3.80-5.40) m/uL Hgb 11.5 (11.4-16.0) gm/dL Hct 34.9 (34.0-46.0) % Plt Count 192 (150-450) k/uL Comprehensive Metabolic Panel 11/18/20 Range/Units 06:42 Sodium 137 (137-145) mmol/L Potassium 3.8 (3.5-5.1) mmol/L Chloride 106 (98-107) mmol/L Carbon Dioxide 27 (22-30) mmol/L BUN 8 (7-17) mg/dL Creatinine 0.48 L (0.52-1.04) mg/dL Glucose 87 (74-99) mg/dL Calcium 8.6 (8.4-10.2) mg/dL Current Medications Generic Name Dose Route Start Last Admin Trade Name Freq PRN Reason Stop Dose Admin Alprazolam 0.25 mg 11/17/20 18:04 Alprazolam 0.25 Mg Tab PO TID PRN Anxiety Ascorbic Acid 500 mg 11/17/20 18:15 11/18/20 09:57 Ascorbic Acid 500 Mg Tab PO 500 mg DAILY KIKI Administration Aspirin 81 mg 11/17/20 21:00 11/17/20 21:09 Aspirin 81 Mg PO 81 mg HS [facility] Administration Carvedilol 25 mg 11/17/20 17:30 11/18/20 17:24 Carvedilol 12.5 Mg Tab PO 25 mg BID-W/MEALS KIKI Administration Cholecalciferol 25 mcg 11/17/20 18:15 11/18/20 09:57 Cholecalciferol 25 Mcg (1000 Iu) Tablet PO 25 mcg DAILY [facility] Administration Diclofenac Sodium 4 gm 11/18/20 09:00 11/18/20 11:04 Diclofenac Sodium Gel 100 Gm Tube TOPICAL Not Given DAILY [facility] Enoxaparin Sodium 40 mg 11/17/20 18:15 11/18/20 09:57 Enoxaparin 40 Mg/0.4 Ml Syringe SQ 40 mg DAILY [facility] Administration Famotidine 20 mg 11/17/20 21:00 11/18/20 09:57 Famotidine 20 Mg Tab PO 20 mg BID [facility] Administration Folic Acid 1 mg 11/19/20 12:00 Folic Acid 1 Mg Tab PO DAILY@1200 [facility] Hydralazine HCl 75 mg 11/17/20 21:00 11/18/20 09:56 Hydralazine Hcl 25 Mg Tab PO 75 mg BID [facility] Administration Sodium Chloride 1,000 mls @ 100 mls/hr 11/17/20 13:45 11/18/20 18:51 Saline 0.9% IV 100 mls/hr .Q10H KIKI Administration Isosorbide Mononitrate 60 mg 11/18/20 09:00 11/18/20 09:57 Isosorbide Mononitrate Er 60 Mg Tab.Er.24h PO 60 mg DAILY KIKI Administration Isosorbide Mononitrate 30 mg 11/18/20 09:00 11/18/20 09:57 Isosorbide Mononitrate Er 30 Mg Tab.Er.24h PO 30 mg DAILY [facility] Administration Loratadine 10 mg 11/18/20 09:00 11/18/20 09:57 Loratadine 10 Mg Tab PO 10 mg DAILY [facility] Administration Multivitamins 1 each 11/18/20 09:00 11/18/20 09:57 Multivitamins, Thera 1 Each Tab PO 1 each DAILY KIKI Administration Nitroglycerin 0.4 mg 11/17/20 13:33 Nitroglycerin Sl Tabs 0.4 Mg Tab SUBLINGUAL Q5M PRN Chest Pain Pantoprazole Sodium 40 mg 11/18/20 07:30 11/18/20 07:12 Pantoprazole 40 Mg Tablet PO 40 mg AC-BRKFST KIKI Administration Pravastatin Sodium 20 mg 11/17/20 21:00 11/17/20 21:08 Pravastatin Sodium 20 Mg Tab PO 20 mg HS KIKI Administration Senna/Docusate Sodium 2 each 11/17/20 21:00 11/17/20 21:08 Sennosides-Docusate Sodium 1 Each Tab PO 2 each HS KIKI Administration Thiamine HCl 100 mg 11/19/20 12:00 Thiamine 100 Mg Tab PO DAILY@1200 KIKI Ticagrelor 90 mg 11/18/20 21:00 Ticagrelor 90 Mg Tab PO BID KIKI Zinc Sulfate 220 mg 11/18/20 17:30 11/18/20 17:24 Zinc Sulfate 220 Mg Cap PO 220 mg DAILY KIKI Administration Intake and Output 11/18/20 11/18/20 11/18/20 06:59 14:59 22:59 Intake Total 720 240 Output Total 300 Balance 420 240 Intake: Oral 720 240 Output: Urine 300 Other: Voiding Method Toilet Toilet # Voids 1 Weight 60.5 kg 11/18/20 06:42 11/18/20 06:42
[2020-11-18] MEDS: ZINC SULFATE 220 MG CAP PO SCH (17:24)
--- NOTE | 2020-11-18 18:00 | ECHOF ---
Referral Reason:stroke MEASUREMENTS -------- HEIGHT: 129.5 cm WEIGHT: 60.3 kg BP: IVSd: 1.1 cm (0.6 - 1.1) LVIDd: 3.1 cm (3.9 - 5.3) LVPWd: 1.2 cm (0.6 - 1.1) IVSs: 1.4 cm LVIDs: 1.8 cm LVPWs: 1.4 cm Ao Diam: 2.2 cm (2.0 - 3.7) AV Cusp: 1.5 cm (1.5 - 2.6) LA Diam: 2.8 cm (2.7 - 3.8) MV EXCURSION: 12.364 mm (> 18.000) MV EF SLOPE: 28 mm/s (70 - 150) EPSS: 0.2 cm MV E Roland: 1.02 m/s MV DecT: 169 ms MV A Roland: 0.97 m/s MV E/A Ratio: 1.06 AR PHT: 1981 ms RAP: 5.00 mmHg RVSP: 8.53 mmHg FINDINGS -------- This was a technically difficult study with suboptimal views. The left ventricular size is normal. Left ventricular wall thickness is normal. Overall left vent ricular systolic function is normal with, an EF between 55 - 60 %. The right ventricle is normal in size. The left atrial size is normal. The right atrial size is normal. 5.0mg of Lumason was utilized for enhancement of images The aortic valve is trileaflet and appears structurally normal. There is mild aortic regurgitation. The mitral valve is normal. Mild mitral regurgitation is present. The tricuspid valve appears structurally normal. Mild tricuspid regurgitation present. Right vent ricular systolic pressure is normal at < 35 mmHg. There is no pulmonic regurgitation present. The aortic root size is normal. Normal inferior vena cava with normal inspiratory collapse consistent with estimated right atrial pre ssure of 5 mmHg. There is no pericardial effusion. CONCLUSIONS -------- 1. The left ventricular size is normal. 2. Left ventricular wall thickness is normal. 3. Overall left ventricular systolic function is normal with, an EF between 55 - 60 %. 4. There is mild aortic regurgitation. 5. Mild mitral regurgitation is present. 6. Mild tricuspid regurgitation present. 7. There is no pericardial effusion. LOCOMOTIVE BOILERMAKER: Anna Heller [facility]
[2020-11-18] MEDS: SODIUM CHLORIDE 0.9% 1,000 ML IV SCH ×2 (18:51→20:28)
--- NOTE | 2020-11-18 18:58 | PN ---
PROGRESS NOTE DATE OF SERVICE: 11/18/2020 This 80-year-old woman was admitted with multiple medical problems, was found to be Covid 19 also. The patient was suspected of TIA. Multiple consultants are following the patient closely. The extrusion press operator seen the patient and recommended a 2D echo with Doppler and antiplatelet agents and suggested Brilinta. Neurology Dr. Reyes has seen the patient and recommended outpatient followup. Intervention neurology has been contacted by neurologist. Please refer to Neurology dictations for details. Plavix has been stopped at this time. Patient being closely monitored. PAST MEDICAL HISTORY: Reviewed. REVIEW OF SYSTEMS: Cardiovascular: No angina. Respiration: As mentioned earlier. GI as mentioned earlier. NERVOUS system: As mentioned earlier. CURRENT MEDICATIONS: Reviewed and include: Xanax. Aspirin. Coreg, Voltaren, Lovenox. Pepcid, Claritin, Nitrostat and Pravachol. PHYSICAL EXAM: Patient is alert, oriented x3. Pulse 67. Blood pressure 130/77 respiration 18, temperature 97.7, pulse ox 97% on room air. HEENT: Conjunctivae normal. NECK: No JVD. CARDIOVASCULAR: S1, S2 muffled. RESPIRATORY SYSTEM: Breath sounds diminished at the bases. No rhonchi. No crackles. ABDOMEN: Soft, nontender. NERVOUS SYSTEM: No focal deficits. LABS: CBC within normal limits. Sodium 130, potassium 3.8. Covid 19 is negative. Inflammatory markers of Covid 19 is negative at this time. Lipid panel is negative. CRP is elevated to 15.3. ASSESSMENT: 1. Right-sided weakness possible acute transient ischemic attack. 2. Acute COVID-19 infection. 3. Elevated CRP. 4. 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 5. Elevated AST, ALT, alkaline phosphatase. 6. History of transient ischemic attack. 7. Hypertension. 8. Hyperlipidemia. 9. History of angina. 10.History of cholecystectomy. 11.History of coronary artery disease/ stent. 12.History of degenerative joint disease. 13.History of lithotripsy. 14.History of depression. 15.Remote history of nicotine dependence. 16.Obesity with body mass index of 58.2. RECOMMENDATIONS AND DISCUSSION: Recommend to continue current medications, management and symptomatic treatment. Otherwise, symptomatic treatment for the Covid 19 at this time. The patient is not hypoxic at this moment, so I would hold off the dexamethasone. I will initiate Lovenox, vitamin supplements at this time. Other than that, the Brilinta has been started. infrastructure manager for Brilinta coverage. Closely follow with Neurology and Cardiology. Prognosis guarded. Further recommendations to follow. MMODL / IJN: [id number] /
[2020-11-18] MEDS: TICAGRELOR 90 MG TAB PO SCH (20:19)
[2020-11-18] MEDS: ASPIRIN 81 MG PO SCH (20:19)
[2020-11-18] MEDS: SENNOSIDES-DOCUSATE SODIUM 1 EACH TAB PO SCH (20:19)
[2020-11-18] MEDS: PRAVASTATIN SODIUM 20 MG TAB PO SCH (20:19)
[2020-11-19] MEDS: carvediloL 12.5 MG TAB PO SCH ×2 (06:21→16:48)
[2020-11-19] MEDS: PANTOPRAZOLE 40 MG TABLET PO SCH (06:23)
[2020-11-19] MEDS: SODIUM CHLORIDE 0.9% 1,000 ML IV SCH ×2 (06:23→17:39)
[2020-11-19 09:03] LABS: Basophils % (A) 1 %; Eosinophils # (A) 0.1 k/uL (0-0.7); Eosinophils % (A) 2 %; HCT 35.7 % (34.0-46.0); HGB 11.6 gm/dL (11.4-16.0); Lymphocytes % (A) 24 %; MCH 28.7 pg (25.0-35.0); MCHC 32.6 g/dL (31.0-37.0); MCV 87.8 fL (80.0-100.0); Mean Platelet Volume 7.5; Monocytes # (A) 0.4 k/uL (0-1.0); Monocytes % (A) 9 %; Neutrophils # (A) 2.6 k/uL (1.3-7.7); Neutrophils % (A) 63 %; Platelet Count 198 k/uL (150-450); RBC 4.06 m/uL (3.80-5.40); WBC 4.2 k/uL (3.8-10.6)
[2020-11-19 09:15] LABS: African American GFR (CKD) >90 (>60 ml/min/1.73 sqM); Anion Gap 9 mmol/L; Blood Urea Nitrogen 9 mg/dL (7-17); Calcium 8.6 mg/dL (8.4-10.2); Carbon Dioxide 23 mmol/L (22-30); Chloride 106 mmol/L (98-107); Glucose 137 mg/dL (74-99); Non-African American GFR(CKD) >90 (>60 ml/min/1.73 sqM); Potassium 3.5 mmol/L (3.5-5.1); Sodium 138 mmol/L (137-145)
[2020-11-19] MEDS: TICAGRELOR 90 MG TAB PO SCH ×2 (09:22→20:53)
[2020-11-19] MEDS: ZINC SULFATE 220 MG CAP PO SCH (09:22)
[2020-11-19] MEDS: ASCORBIC ACID 500 MG TAB PO SCH (09:22)
[2020-11-19] MEDS: hydrALAZINE HCL 25 MG TAB PO SCH ×2 (09:22→20:52)
[2020-11-19] MEDS: ISOSORBIDE MONONITRATE ER 30 MG TAB.ER.24H PO SCH (09:22)
[2020-11-19] MEDS: FAMOTIDINE 20 MG TAB PO SCH ×2 (09:23→20:53)
[2020-11-19] MEDS: CHOLECALCIFEROL 25 MCG (1000 IU) TABLET PO SCH (09:23)
[2020-11-19] MEDS: ISOSORBIDE MONONITRATE ER 60 MG TAB.ER.24H PO SCH (09:23)
[2020-11-19] MEDS: MULTIVITAMINS, THERA 1 EACH TAB PO SCH (09:23)
[2020-11-19] MEDS: LORATADINE 10 MG TAB PO SCH (09:26)
[2020-11-19] MEDS: DICLOFENAC SODIUM GEL 100 GM TUBE TOPICAL SCH (09:26)
[2020-11-19] MEDS: ENOXAPARIN 40 MG/0.4 ML SYRINGE SQ SCH (09:26)
[2020-11-19] MEDS: FOLIC ACID 1 MG TAB PO SCH (11:49)
[2020-11-19] MEDS: THIAMINE 100 MG TAB PO SCH (11:49)
--- NOTE | 2020-11-19 12:30 | P.PN ---
Subjective Progress Note Date: 11/19/20 He was seen at bedside and she denies any further neurological deficits. She stated that she is at baseline. Objective - Vital Signs Vital signs: Vital Signs Temp 97.8 F 11/19/20 08:00 Pulse 68 11/19/20 12:00 Resp 18 11/19/20 12:00 BP 185/91 11/19/20 12:00 Pulse Ox 98 11/19/20 12:00 Intake & Output 11/18/20 11/19/20 11/19/20 18:59 06:59 18:59 Intake Total 960 240 Output Total 300 Balance 660 240 Weight 57 kg Intake: Oral 960 240 Output: Urine 300 Other: Voiding Method Toilet Toilet # Voids 2 - Exam GENERAL: The patient is lying in bed and is not in acute distress. NEUROLOGICAL: Higher mental function: The patient is awake, alert, oriented to self, place and time. Patient is following commands. No aphasia and no neglect. Cranial nerves: The pupils are round, equal and reactive to light and accommodation. Visual murray are full to confrontation throughout. Extraocular movement is intact no nystagmus is noted. Facial sensation is normal to touch throughout. The facial strength is normal throughout. Hearing is normal bilaterally to hand rub. Tongue is midline and moved [id number] without any difficulty. No dysarthria is noted. Shoulder shrug is normal bilaterally. Motor: Gait is deferred. The strength is 5 over 5 throughout. Normal tone and bulk. Cerebellum: Normal finger to nose heel to ferrari bilaterally. Sensation: Sensation is normal to touch throughout. Reflexes (right/left): 2+ Plantars are downgoing bilaterally. - Labs CBC & Chem 7: 11/19/20 08:41 11/19/20 08:41 Labs: Abnormal Lab Results - Last 24 Hours (Table) 11/19/20 Range/Units 08:41 Creatinine 0.45 L (0.52-1.04) mg/dL Glucose 137 H (74-99) mg/dL Assessment and Plan Assessment: This is a 80-year-old woman that presented to the emergency department on 11/17/2020 with transient episode of slurring her speech. She has been feeling generalized weakness/fatigue for the past 3 days and slight cough earlier in week that resolved. Transient episode of dysarthria is unclear. 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 Pneumonia from underlying COVID 19 History of hypertension History of lumbar spondylosis status post fusion in February 2020 History of coronary artery disease status post 4 stents 2011 Hypercholesterolemia Plan: CT of the head is reported as no acute intracranial hemorrhage or midline shift. There is mild diffuse age-related cerebral atrophy and mild to moderate chronic small vessel ischemic changes noted. CT head and neck was reported as suboptimal study without significant stenosis seen in common or internal carotid arteries bilaterally. 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 No significant stenosis at the level nulato of [place]. 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 The intervention neurologist (Dr. Deleon) was contacted regarding the patient aneurysm and he stated nothing to be done at this time and to follow-up as an outpatient. Per ED team Dr. Deleon stated his team will attempt to contact her for outpatient follow-up. Continue Brilinta 90mg 1 tab bid and to continue on ASA 81mg daily for secondary stroke prophylaxis. Continue Pravastatin 20mg daily. MR the brain is reported as age-related changes of atrophy and chronic small vessel ischemia. Pending 2-D echo TSH: 3.24 (normal), vitamin B6 level especially since the patient is on the multiple vitamins and the excess of vitamin B6 that can cause neuropathy. Lipid panels: Triglyceride is 146, cholesterol is 123, LDLs 52 and HDL is 42. Cholesterol the LDL goal is less than 52 and she is at goal. PT, OT and TARIFF COUNSEL are consulted The plan is discussed with the patient. We'll defer the rest of the medical management to the primary team. Recommend normotensive blood pressure. She needs to follow-up with Dr. Deleon team as outpatient (regarding her aneurysm). No further neurological work-up is needed. Neurology will sign off. Please reconsult if needed. The plan is discussed with the patient and her nurse. Juan Reyes M.D. Neuro-hospitalist Time with Patient: Less than 30
[2020-11-19] MEDS ORDERED: carvediloL 12.5 MG TAB PO STA (12:39)
[2020-11-19] MEDS: amLODIPine 10 MG TAB PO SCH (18:07)
--- NOTE | 2020-11-19 19:08 | PN ---
PROGRESS NOTE DATE OF SERVICE: 11/19/2020. This 80-year-old female admitted with right-sided weakness also had acute COVID- 19 infection. The patient is not feeling well today according to her, but however the parameters are stable and Neurology is also following the patient closely. Cultures are negative so far and D-dimer is only 0.55. The patient is also saturating about 98% on room air. No chest pain. No palpitations. No fever. PHYSICAL EXAMINATION: Alert and oriented x3. The pulse is 76. Blood pressure 160/86, respiration 18, temperature 97.8, pulse ox 98% on room air. HEENT: Conjunctivae normal. NECK: No JVD. CARDIOVASCULAR: S1, S2 diminished in the bases. No rhonchi. No crackles. ABDOMEN: Soft. NERVOUS SYSTEM: No focal deficits. LABORATORY DATA: CBC, BMP noted. ASSESSMENT: 1. Right-sided weakness, possible acute transient ischemic attack, present on admission. 2. Acute COVID-19 infection. 3. Hypertension. 4. Elevated CRP. 5. 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 6. Elevated AST, ALT, alkaline phosphatase. 7. History of transient ischemic attack. 8. Hypertension. 9. Hyperlipidemia. 10.History of angina. 11.History of cholecystectomy. 12.History of coronary artery disease, stent. 13.History of degenerative joint disease. 14.History of lithotripsy. 15.History of depression. 16.Remote history of nicotine dependence. 17.Obesity with body mass index of 58.2. RECOMMENDATIONS AND DISCUSSION: I recommend to continue current medications, monitoring, symptomatic treatment. I would increase the dose of Coreg 50 mg p.o. b.i.d. I would also add Norvasc to the current regimen and continue to monitor. Further recommendations to follow. MMODL / IJN: [id number] / MTDD
[2020-11-19] MEDS: PRAVASTATIN SODIUM 20 MG TAB PO SCH (20:52)
[2020-11-19] MEDS: ASPIRIN 81 MG PO SCH (20:53)
[2020-11-19] MEDS: SENNOSIDES-DOCUSATE SODIUM 1 EACH TAB PO SCH (20:53)
[2020-11-20] MEDS: SODIUM CHLORIDE 0.9% 1,000 ML IV SCH (01:45)
[2020-11-20 04:15] VITALS: RESP 18
[2020-11-20] MEDS: carvediloL 12.5 MG TAB PO SCH (06:40)
[2020-11-20] MEDS: PANTOPRAZOLE 40 MG TABLET PO SCH (06:41)
[2020-11-20 08:22] LABS: Basophils % (A) 0 %; Eosinophils # (A) 0.1 k/uL (0-0.7); Eosinophils % (A) 2 %; HCT 37.1 % (34.0-46.0); HGB 12.2 gm/dL (11.4-16.0); Lymphocytes # (A) 1.1 k/uL (1.0-4.8); Lymphocytes % (A) 31 %; MCH 28.8 pg (25.0-35.0); MCHC 32.9 g/dL (31.0-37.0); MCV 87.5 fL (80.0-100.0); Mean Platelet Volume 7.4; Monocytes # (A) 0.3 k/uL (0-1.0); Monocytes % (A) 9 %; Neutrophils % (A) 57 %; Platelet Count 214 k/uL (150-450); RBC 4.24 m/uL (3.80-5.40); WBC 3.5 k/uL (3.8-10.6)
[2020-11-20 08:35] LABS: African American GFR (CKD) >90 (>60 ml/min/1.73 sqM); Anion Gap 9 mmol/L; Blood Urea Nitrogen 7 mg/dL (7-17); Carbon Dioxide 27 mmol/L (22-30); Chloride 105 mmol/L (98-107); Glucose 107 mg/dL (74-99); Non-African American GFR(CKD) >90 (>60 ml/min/1.73 sqM); Potassium 3.6 mmol/L (3.5-5.1); Sodium 141 mmol/L (137-145)
[2020-11-20] MEDS: amLODIPine 10 MG TAB PO SCH (09:06)
[2020-11-20] MEDS: THIAMINE 100 MG TAB PO SCH (09:06)
[2020-11-20] MEDS: FAMOTIDINE 20 MG TAB PO SCH (09:06)
[2020-11-20] MEDS: LORATADINE 10 MG TAB PO SCH (09:07)
[2020-11-20] MEDS: ISOSORBIDE MONONITRATE ER 60 MG TAB.ER.24H PO SCH (09:07)
[2020-11-20] MEDS: CHOLECALCIFEROL 25 MCG (1000 IU) TABLET PO SCH (09:07)
[2020-11-20] MEDS: ZINC SULFATE 220 MG CAP PO SCH (09:07)
[2020-11-20] MEDS: ASCORBIC ACID 500 MG TAB PO SCH (09:07)
[2020-11-20] MEDS: MULTIVITAMINS, THERA 1 EACH TAB PO SCH (09:07)
[2020-11-20] MEDS: FOLIC ACID 1 MG TAB PO SCH (09:07)
[2020-11-20] MEDS: TICAGRELOR 90 MG TAB PO SCH (09:07)
[2020-11-20] MEDS: ISOSORBIDE MONONITRATE ER 30 MG TAB.ER.24H PO SCH (09:07)
[2020-11-20] MEDS: hydrALAZINE HCL 25 MG TAB PO SCH (09:07)
[2020-11-20] MEDS: ENOXAPARIN 40 MG/0.4 ML SYRINGE SQ SCH (09:07)
[2020-11-20 09:25] VITALS: BP 118/64; PULSE 73; TEMP 98.4
[2020-11-20 18:09] LABS: Hemoglobin A1C 5.6 % (4.0-6.0)
--- NOTE | 2020-11-21 08:48 | P.DS ---
Providers Date of admission: 11/17/20 14:01 Expected date of discharge: 11/20/20 Attending physician: Viv Sands Consults: 11/17/20 13:31 Consult Physician Routine Consulting Provider: Juan Reyes Consult Reason/Comments: TIA Do you want consulting provider notified?: Yes Primary care physician: Hussain Metzger [facility] Course: Final diagnosis Right-sided weakness, possible acute transient ischemic attack, present on admission Acute Covid 19 infection Hypertension Elevated CRP Mild cylindrical aneurysm type changes in the bilateral atrial segment more prominent on the left Elevated AST, ALT, alkaline phosphatase History of TIA next line hypertension Hyperlipidemia history of angina history of cholecystectomy history of coronary artery disease, stent history of degenerative joint disease History of lithotripsy history of depression Remote history of nicotine dependence Discharge disposition Patient is being discharged in a stable condition with guarded prognosis to home. Patient will follow-up with Dr. Hussain Metzger in the outpatient setting upon discharge. Patient also instructed to follow-up with interventional neurologist Dr. Deleon in the outpatient setting. Total time taken is greater than 35 minutes. Hospital course This is a 80-year-old female who was recently admitted with right-sided weakness and also acute Covid 19 infection and was being closely monitored. Patient states last Friday she was not feeling well and more fatigued than normal and denies any sick contacts although did visit with son and [id number] the previous . They deny any recent sick contacts as well. Was seen and evaluated by neurology as well as cardiology and was started on Brilinta, and Plavix has been discontinued. This was discussed between neurology and cardiology. Patient's most current echo shows an EF of 55-60% without valvular disease. Patient was also having some elevated blood pressure and Coreg was increased and amlodipine was added. Patient was instructed to keep a diary of blood pressure readings and follow-up with primary care provider this week. She will follow with Dr. Deleon interventional neurologist in the outpatient setting as previously discussed. Patient is currently sitting up in the chair stating she is feeling better and denies any weakness or deficits and is on room air. Patient is asking if she can go home. Patient will need follow-up with neurology outpatient. Currently no reports of chest pain, shortness of breath, or palpitations. Patient is afebrile. No reports of nausea or vomiting and patient is tolerating diet. Patient will be discharged home today. Guarded prognosis. On exam vital signs are stable. Cardio S1, S2 are muffled. Respiratory system shows diminished breath sounds at the bases with no wheezing or rhonchi noted. Abdomen is soft and nontender. Nervous system shows no focal deficits. Please refer to medication reconciliation sheet for a list of medications. Patient Condition at Discharge: Fair Plan - Discharge Summary Discharge Rx Participant: No New Discharge Prescriptions: New Ticagrelor [Brilinta] 90 mg PO BID 30 Days #60 tab Folic Acid 1 mg PO DAILY@1200 30 Days #30 tab amLODIPine [Norvasc] 10 mg PO DAILY 30 Days #30 tab Zinc Sulfate [Orazinc] 220 mg PO DAILY 30 Days #30 cap Thiamine [Vitamin B-1] 100 mg PO DAILY@1200 30 Days #30 tab Ascorbic Acid [Vitamin C] 500 mg PO DAILY 30 Days #30 tab Cholecalciferol [Vitamin D3 (25 Mcg = 1000 Iu)] 25 mcg PO DAILY 30 Days #30 tablet Continue Aspirin EC [Ecotrin Low Dose] 81 mg PO HS Cetirizine HCl 10 mg PO DAILY Diclofenac Sodium [Voltaren Gel] 4 gram TOPICAL DAILY hydrALAZINE HCL [Apresoline] 75 mg PO BID Isosorbide Mononitrate ER [Imdur] 60 mg PO DAILY Isosorbide Mononitrate ER [Imdur] 30 mg PO DAILY Multivit-Min/FA/Lycopen/Lutein [Centrum Silver Tablet] 1 tab PO DAILY Nitroglycerin Sl Tabs [Nitrostat] 0.4 mg SL Q5M PRN PRN Reason: Chest Pain Omeprazole 40 mg PO DAILY Pravastatin Sodium [Pravachol] 20 mg PO HS Sennosides/Docusate Sodium [Senna Plus 8.6-50 mg Tablet] 2 tab PO HS Vitamin B Complex 1 cap PO DAILY Changed Carvedilol [Coreg] 50 mg PO BID 30 Days #120 tab Discontinued Clopidogrel Bisulfate [Plavix] 75 mg PO DAILY Discharge Medication List Aspirin EC [Ecotrin Low Dose] 81 mg PO HS 11/17/20 [History] Cetirizine HCl 10 mg PO DAILY 11/17/20 [History] Diclofenac Sodium [Voltaren Gel] 4 gram TOPICAL DAILY 11/17/20 [History] Isosorbide Mononitrate ER [Imdur] 30 mg PO DAILY 11/17/20 [History] Isosorbide Mononitrate ER [Imdur] 60 mg PO DAILY 11/17/20 [History] Multivit-Min/FA/Lycopen/Lutein [Centrum Silver Tablet] 1 tab PO DAILY 11/17/20 [History] Nitroglycerin Sl Tabs [Nitrostat] 0.4 mg SL Q5M PRN 11/17/20 [History] Omeprazole 40 mg PO DAILY 11/17/20 [History] Pravastatin Sodium [Pravachol] 20 mg PO HS 11/17/20 [History] Sennosides/Docusate Sodium [Senna Plus 8.6-50 mg Tablet] 2 tab PO HS 11/17/20 [History] Vitamin B Complex 1 cap PO DAILY 11/17/20 [History] hydrALAZINE HCL [Apresoline] 75 mg PO BID 11/17/20 [History] Ascorbic Acid [Vitamin C] 500 mg PO DAILY 30 Days #30 tab 11/20/20 [Rx] Carvedilol [Coreg] 50 mg PO BID 30 Days #120 tab 11/20/20 [Rx] Cholecalciferol [Vitamin D3 (25 Mcg = 1000 Iu)] 25 mcg PO DAILY 30 Days #30 tablet 11/20/20 [Rx] Folic Acid 1 mg PO DAILY@1200 30 Days #30 tab 11/20/20 [Rx] Thiamine [Vitamin B-1] 100 mg PO DAILY@1200 30 Days #30 tab 11/20/20 [Rx] Ticagrelor [Brilinta] 90 mg PO BID 30 Days #60 tab 11/20/20 [Rx] Zinc Sulfate [Orazinc] 220 mg PO DAILY 30 Days #30 cap 11/20/20 [Rx] amLODIPine [Norvasc] 10 mg PO DAILY 30 Days #30 tab 11/20/20 [Rx] Follow up Appointment(s)/Referral(s): Hussain Metzger DO [Primary Care Provider] - 1-2 days Patient Instructions/Handouts: Transient Ischemic Attack (DC) Activity/Diet/Wound Care/Special Instructions: Activity Limited until follow-up follow up with primary care provider upon discharge Continue current diet Follow-up with neurology outpatient Follow up cardiology outpatient Continue to social distance aware mask with frequent handwashing Follow-up with primary care provider about discussing for repeat testing in 7-10 days Discharge Disposition: HOME SELF-CARE
== END 2020-11-20 13:57 | disposition home or self-care (01) ==
LOC: EC 11:02 → 3SCARD 14:01
PROVIDERS: ADMIT Hospitalist; ATTEND Hospitalist
DX: R53.1 Weakness (principal); E86.0 Dehydration; R47.1 Dysarthria and anarthria; U07.1 COVID-19; J12.82 Pneumonia due to coronavirus disease 2019; I10 Essential (primary) hypertension; R79.82 Elevated C-reactive protein (CRP); R74.01 Elevation of levels of liver transaminase levels; E78.5 Hyperlipidemia, unspecified; I25.10 Atherosclerotic heart disease of native coronary artery without angina pectoris; M19.90 Unspecified osteoarthritis, unspecified site; F32.9 Major depressive disorder, single episode, unspecified; E78.00 Pure hypercholesterolemia, unspecified; M47.816 Spondylosis without myelopathy or radiculopathy, lumbar region; E87.1 Hypo-osmolality and hyponatremia; I67.1 Cerebral aneurysm, nonruptured; Z79.899 Other long term (current) drug therapy; Z79.02 Long term (current) use of antithrombotics/antiplatelets; Z86.73 Personal history of transient ischemic attack (TIA), and cerebral infarction without residual deficits; Z90.49 Acquired absence of other specified parts of digestive tract; Z95.5 Presence of coronary angioplasty implant and graft; Z87.891 Personal history of nicotine dependence; Z98.1 Arthrodesis status; E66.9 Obesity, unspecified; Z68.43 Body mass index [BMI] 50.0-59.9, adult; Z79.82 Long term (current) use of aspirin; Z79.1 Long term (current) use of non-steroidal anti-inflammatories (NSAID); Z90.710 Acquired absence of both cervix and uterus; Z83.3 Family history of diabetes mellitus; Z82.49 Family history of ischemic heart disease and other diseases of the circulatory system; Z82.61 Family history of arthritis; Z83.438 Family history of other disorder of lipoprotein metabolism and other lipidemia
CPT/HCPCS: 96361 ×3; 96372 ×4; 96360; 99285; 36415; 93005; 97161; 97165; 84207; 85379; 82747; 80061; 80053; 80048 ×3; 84443; 82728; 82550; 83615; 84484; 85025 ×4; 85610; 85730; 86140; 81001; 83036; 87635; 71046; 70496; 70450; 70498; 70551; G0378 ×4; C8929; J1650 ×4; Q9950; Q9967; 93306